=== PATIENT | male | born 1985 | race Caucasian/White ===

== ENCOUNTER 2018-07-12 00:30 | Emergency (ER) | payer MEDICAID, SELFPAY ==
[~2018-07-12] VITALS: Ht 185.4 cm; Wt 75.0 kg
[~2018-07-12 00:30] MED LIST: NO HOME MEDS
[2018-07-12] MEDS ORDERED: KEFL500C17 PO (02:07)
[2018-07-12] MEDS ORDERED: CEPHALEXIN 500 MG CAP PO ONE (02:15)
[2018-07-12 02:28] VITALS: BP 156/81
== END 2018-07-12 02:29 | disposition home or self-care (01) ==
LOC: M ED 00:30
DX: L02.416 Cutaneous abscess of left lower limb (principal); Z72.0 Tobacco use